=== PATIENT | male | born 1985 | race American Indian/Alaskan Native ===

== ENCOUNTER 2016-09-21 17:41 | Emergency (ER) | payer SELFPAY ==
[2016-09-21 18:01] VITALS: BP 110/66; O2SAT 98
[2016-09-21] MEDS ORDERED: cefTRIAXone (Rocephin) 250 mg Inj IM STA (18:27)
--- NOTE | 2016-09-21 18:31 | ED PDOC ---
Arrival/HPI - General Chief Complaint: Male Genitourinary Time Seen by Provider: 09/21/16 18:13 Historian: Patient - History of Present Illness Narrative History of Present Illness (Text): 09/21/16 18:28 Patient reports the emergency room complaining of dysuria 3 days. Patient states that he may have chlamydia, states that his girlfriend was recently diagnosed and treated for chlamydia. Denies any fever, chills, abdominal pain, back pain, nausea, vomiting, hematuria. Patient has other complaints otherwise. Past Medical History - Provider Review Nursing Documentation Reviewed: Yes - Infectious Disease Hx of Infectious Diseases: None - Psychiatric Hx Substance Use: No Family/Social History - Physician Review Nursing Documentation Reviewed: Yes Family/Social History: No Known Family HX Smoking Status: Never Smoked Hx Alcohol Use: No Frequency of alcohol use: Socially Hx Substance Use: No Allergies/Home Meds Allergies/Adverse Reactions: Allergies No Known Allergies Allergy (Verified 09/21/16 18:01) Home Medications: Home Meds Medication Instructions Recorded Confirmed No Known Home Med 09/21/16 09/21/16 Review of Systems - Review of Systems Constitutional: Normal. absent: Fatigue, Weight Change Cardiovascular: Normal. absent: Chest Pain, Palpitations Gastrointestinal: Normal. absent: Abdominal Pain, Stool Changes Genitourinary Male: Normal, Dysuria. absent: Frequency, Hematuria Musculoskeletal: Normal. absent: Arthralgias, Back Pain Skin: Normal. absent: Rash, Pruritis, Skin Lesions Physical Exam - Physical Exam Narrative Physical Exam (Text): 09/21/16 18:31 GENERAL APPEARANCE: Patient is awake, alert, oriented x 3, in no acute distress. SKIN: Warm, dry; (-) cyanosis. EYES: (-) conjunctival pallor, (-) scleral icterus. ENMT: Mucous membranes moist. NECK: (-) tenderness, (-) stiffness, (-) lymphadenopathy. CHEST AND RESPIRATORY: (-) rales, (-) rhonchi, (-) wheezes; breath sounds equal bilaterally. HEART AND CARDIOVASCULAR: (-) irregularity; (-) murmur, (-) gallop. ABDOMEN AND GI: (-) distention. Bowel sounds active; (-) tenderness, (-) guarding, (-) rebound, (-) palpable masses, (-) CVA tenderness. EXTREMITIES: (-) deformity, (-) edema, (+) distal pulses. NEURO AND PSYCH: Mental status as above; (-) focal findings. Vital Signs Temp Pulse Resp BP Pulse Ox 09/21/16 18:54 16 98 09/21/16 18:51 98.0 F 67 16 98 09/21/16 17:56 98 F 66 18 110/66 98 Medical Decision Making ED Course and Treatment: 09/21/16 18:32 31 yo M presents with 2 day h/o dysuria, likely has urethritis due to recent exposure to chlamydia. Urine sent for GC testing. Patient advised that he will be called for any (+) results. Patient medicated with rocephin IM and zithromax PO. Based on history and exam, plan will be for outpatient follow-up. Patient states he fully agrees with and understands discharge instructions. States that he agrees with the plan and disposition. Verbalized and repeated discharge instructions and plan. I have given the patient opportunity to ask any additional questions. Follow up with primary care physician or the clinic in 1-2 days without fail. Return to the emergency room at any time for any new or worsening symptoms. 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 Disposition/Present on Arrival - Present on Arrival Any Indicators Present on Arrival: No History of DVT/PE: No History of Uncontrolled Diabetes: No Urinary Catheter: No History of Decub. Ulcer: No History Surgical Site Infection Following: None - Disposition Have Diagnosis and Disposition been Completed?: Yes Diagnosis: Urethritis Disposition: HOME/ ROUTINE Disposition Time: 18:34 Patient Plan: Discharge Condition: GOOD Discharge Instructions (ExitCare): Nonspecific Urethritis in Men (ED) Print Language: BENGALI Additional Instructions: Thank you for letting us take care of you today. You were treated for urethritis. The emergency medical care you received today was directed at your acute symptoms. Return to the Emergency Department if your symptoms worsen, do not improve, or if you have any other problems. Please contact your doctor in 2 days for re-evaluation and follow up. Bring any paperwork you were given at discharge with you along with any medications you are taking to your follow up visit. Our treatment cannot replace ongoing medical care by a primary care provider (PCP) outside of the emergency department. Thank you for allowing the [facility] team to be part of your care today. Referrals: [facility] [Outside] - Follow up with primary
[2016-09-21 18:51] VITALS: PULSE 67; RESP 16; TEMP 98
== END 2016-09-21 18:55 | disposition home or self-care (01) ==
LOC: ED 17:41
DX: N34.2 Other urethritis (principal)
CPT/HCPCS: 87491; 87591; 96372; 99283; J0696